=== PATIENT | female | born 1970 | race Two or more races ===

== ENCOUNTER 2024-02-12 16:00 | Inpatient (IN) | payer MEDICAID, OTHER ==
[~2024-02-12] VITALS: Ht 162.6 cm; Wt 41.9 kg
[2024-02-12 16:41] LABS: Basophils # (auto) 0 10 ^3/uL (0-0.2); Eosinophils # (auto) 0 10 ^3/uL (0-0.8); Lymphocytes # (auto) 0.7 10 ^3/uL (0.4-5.4); Monocytes # (auto) 0.4 10 ^3/uL (0-1.3)
[2024-02-12 16:42] LABS: Basophils % (auto) 0.2 % (0.0-2.0); Hematocrit 47.2 % (36.0-46.0); Hemoglobin 15.9 g/dL (12.2-16.2); Lymphocytes % (auto) 5.4 % (10.0-50.0); Mean Corpuscular Hemoglobin 30.1 pg (28.0-32.0); Mean Corpuscular Hgb Conc. 33.7 g/dL (32.0-36.0); Mean Corpuscular Volume 89.4 fL (80.0-100.0); Monocytes % (auto) 3.2 % (0.0-12.0); Neutrophils % (auto) 91.2 % (37.0-80.0); Platelet Count (auto) 551 10^3/uL (140-450); Red Blood Cells 5.27 10^6/uL (4.0-5.20); Red Cell Distribution Width 14.7 % (11.8-14.3); White Blood Cell 13.1 10^3/uL (4.4-10.8)
[2024-02-12 16:50] LABS: Chloride 102 mmol/L (98-107); Potassium 3.6 mmol/L (3.5-5.1); Sodium 139 mmol/L (136-145)
[2024-02-12 16:51] LABS: Anion Gap 14 (5-15); Carbon Dioxide 23 mmol/L (20-31)
[2024-02-12 16:53] LABS: Calcium 11.8 mg/dL (8.7-10.4)
[2024-02-12 16:56] LABS: BUN/Creatinine Ratio 29.7 (10.0-20.0); Blood Urea Nitrogen 19 mg/dL (9-23); Glucose 144 mg/dL (74-106)
--- NOTE | 2024-02-12 17:00 | ED.PDOC ---
History of Present Illness HPI Comments 53 y/o F is BIBA for c/o abdominal and back pain nausea, vomiting, and diarrhea, today. Per EMS report, patient endorses on unprovoked onset of symptoms at 0530, this morning, that has been, progressively, worsening since. Patient states on pain radiating towards her back and reports no additional relevant or pertinent Hx, such as spoiled food intake or sick contact exposure. She denies having any hematemesis, constipation, urinary symptoms, fever, chills, or other associated symptoms or modifiers at this time. Chief Complaint: Abdominal Pain Time Seen by MD: 16:15 Reviewed Notes: Nurses Notes, Medications, Allergies Allergies: Coded Allergies: Prochlorperazine (Verified Allergy, Unknown, 02/12/24) Promethazine (Verified Allergy, Unknown, 02/12/24) Information Source: Patient Mode of Arrival: EMS Severity: Moderate Timing: Hours Duration: Since onset Prehospital treatment: 12 Lead EKG, Bsa Officer Past Medical History Past Medical History (Other): osteoporosis, neuropathy w/gabapentin use Surgical History: Denies all surgeries ACCOUNT INSTALLER History: Denies all ACCOUNT INSTALLER Hx Family History Family History: Unknown Social History Smoker: Non-Smoker Alcohol: Denies ETOH Use Drugs: Denies Drug Use Lives In: Home Gastrointestinal: reports: abdominal pain, diarrhea, nausea, vomiting Musculoskeletal: reports: back pain All Other Systems: Reviewed and Negative (negative unless otherwise stated above or in HPI) Physical Exam General Appearance: Moderate Distress, Thin HEENT: Normal ENT Inspection, Pharynx Normal, TMs Normal Neck: Full Range of Motion, Non-Tender, Normal, Normal Inspection Respiratory: Chest Non-Tender, Lungs Clear, No Accessory Muscle Use, No Respiratory Distress, Normal Breath Sounds Cardiovascular: No Edema, No JVD, No Murmur, No Gallop, Normal Peripheral Pul ses, Regular Rate/Rhythm Breast Exam: Deferred Gastrointestinal: No Organomegaly, Non Tender, No Pulsatile Mass, Normal Bowel Sounds, Soft Genitalia: Deferred Pelvic: Deferred Rectal: Deferred Extremities: No calf tenderness, Normal capillary refill, Normal inspection, Normal range of motion, Non-tender, No pedal edema Musculoskeletal : Apperance: Normal Neurologic: Alert, academic support center director II-XII nml as Tested, No Motor Deficits, Normal Affect, Normal Mood, No Sensory Deficits Cerebellar Function: NOT DONE Reflexes: NOT DONE Skin: Dry, Normal Color, Warm Peripheral Pulses: 3+ Radial (R), 3+ Radial (L) Lymphatic: No Adenopathy Was a procedure done? Was a procedure done?: No Differential Dx Considerations may include: gastritis, gastroenteritis, acute abdomen, chronic pain syndrome, neuropathy, spoiled food X-Ray, Labs, Meds, VS Vital Signs Date Time Temp Pulse Resp B/P (MAP) Pulse Ox O2 Delivery O2 Flow Rate FiO2 02/12/24 16:16 97.9 106 16 155/89 (111) 98 Lab Test 02/12/24 16:22 Range/Units White Blood Count 13.1 H 4.4-10.8 10^3/uL Red Blood Count 5.27 H 4.0-5.20 10^6/uL Hemoglobin 15.9 12.2-16.2 g/dL Hematocrit 47.2 H 36.0-46.0 % Mean Corpuscular Volume 89.4 80.0-100.0 fL Mean Corpuscular Hemoglobin 30.1 28.0-32.0 pg Mean Corpuscular Hemoglobin Concent 33.7 32.0-36.0 g/dL Red Cell Distribution Width 14.7 H 11.8-14.3 % Platelet Count 551 H 140-450 10^3/uL Mean Platelet Volume 8.3 6.9-10.8 fL Neutrophils (%) (Auto) 91.2 H 37.0-80.0 % Lymphocytes (%) (Auto) 5.4 L 10.0-50.0 % Monocytes (%) (Auto) 3.2 0.0-12.0 % Eosinophils (%) (Auto) 0.0 0.0-7.0 % Basophils (%) (Auto) 0.2 0.0-2.0 % Neutrophils # (Auto) 12.0 H 1.6-8.6 10 ^3/uL Lymphocytes # (Auto) 0.7 0.4-5.4 10 ^3/uL Monocytes # (Auto) 0.4 0-1.3 10 ^3/uL Eosinophils # (Auto) 0 0-0.8 10 ^3/uL Basophils # (Auto) 0 0-0.2 10 ^3/uL Nucleated Red Blood Cells 0.0 % Sodium Level 139 136-145 mmol/L Potassium Level 3.6 3.5-5.1 mmol/L Chloride Level 102 98-107 mmol/L Carbon Dioxide Level 23 20-31 mmol/L Anion Gap 14 5-15 Blood Urea Nitrogen 19 9-23 mg/dL Creatinine 0.64 0.550-1.02 mg/dL Glomerular Filtration Rate Calc 105 >90 mL/min BUN/Creatinine Ratio 29.7 H 10.0-20.0 Serum Glucose 144 H 74-106 mg/dL Calcium Level 11.8 H 8.7-10.4 mg/dL Patient alert. Complaining of abdominal pain. Nausea vomiting. Vitals stable. WBC elevated. Establish intravenous access. Was given fluids. Possible gastroenteritis. Blood sugar elevated. Was given morphine. Was given Zofran. Possible colitis. Reviewed her previous history. Explained to the patient. Continue cardiac monitoring. Time of 1ST Reevaluation: 16:45 Reevaluation 1ST: Unchanged Patient Education/Counseling: Diagnosis, Treatment Family Education/Counseling: No Family Present Departure 1 Departure Time of Disposition: 17:04 Impression: Primary Impression: Acute abdominal pain Additional Impression: Non-specific colitis Disposition: ADMITTED INPATIENT Admit to: Med Surg Condition: Guarded Critical Care Note Critical Care Time?: No Stability Stability form required: No Heart Score Heart Score: Heart Score Response (Comments) Value History N/A 0 EKG N/A 0 Age N/A 0 Risk Factors N/A 0 Troponin N/A 0 Total 0 I personally scribed for BOBBY MILIAN MD ([email or web address]) on 02/12/24 at 17:00. Electronically submitted by Celestino Posada ([email or web address]). BOBBY MILIAN MD Feb 12, 2024 17:00
[2024-02-12] MEDS: ONDANSETRON HCL 4 MG/2 ML VIAL IV ONE ×2 (17:56→23:00)
[2024-02-12] MEDS: MORPHINE SULFATE 4 MG/ML SYR/VIAL IV ONE (17:56)
[2024-02-12] MEDS: SODIUM CHLORIDE 0.9% 1,000 ML IV ONE (17:57)
[2024-02-12] MEDS: cefTRIAXone 1GM/50ML D5W 50 ML IV ONE (17:57)
--- NOTE | 2024-02-12 18:42 | DVH ---
Exam: CT CT AB PEL WO CON-NO ORAL OR IV History: colitis Comparison Study: None available at time of dictation. Technique: Multidetector spiral CT of the abdomen was performed from lung bases to pubic symphysis. Imaging was performed without IV contrast. Axial, coronal and sagittal multiplanar reformats were ob tained from the axial data set by the technologist. Radiation Dose : 1. Abdomen/Pelvis: CTDIvol 5 mGy, DLP 226 mGy*cm. Findings: Evaluation of solid organs is limited due to lack of intravenous contrast use. Lung Bases: No acute or significant lung base finding. Normal heart size. No pleural or pericardial effusion. Liver: The liver is normal in size. No focal lesions. Gallbladder and Biliary Tree: Gallbladder is surgically absent. Spleen: Unremarkable Pancreas: The pancreas is grossly normal in appearance. Adrenal Glands: Unremarkable Kidneys: Kidneys are grossly normal without calculi or hydronephrosis. Bladder: Grossly unremarkable for degree of distention. Bowel: The stomach is grossly normal in appearance. Small bowel and colon are normal in caliber and d istribution. The appendix is not visualized; however, no secondary findings of acute appendicitis id entified. Ascites: Absent Lymphadenopathy: No mesenteric, retroperitoneal or periportal lymphadenopathy. Abdominal Wall and Mesentery: Unremarkable. Vasculature: The visualized abdominal aorta is normal in size and caliber. Evaluation of abdominal a nd pelvic vessels is limited due to lack of intravenous contrast. Pelvic Organs: The uterus is surgically absent. Musculoskeletal: No aggressive focal bony lesions, acute fractures or dislocation. IMPRESSION: No acute abdominal or pelvic findings on this noncontrast evaluation. No evidence to suggest acute co litis. Fatty infiltration involving portions of the colonic wall which can be seen with inflammatory bowel disease or prior episodes of infectious/inflammatory colitis. Ancillary findings as described ortiz patrick. Status post cholecystectomy with expected dilation of the common bile duct. END IMPRESSION:
[2024-02-12] MEDS: metroNIDAZOLE 500MG/100ML 100 ML IV ONE (18:43)
[2024-02-12] MEDS ORDERED: PROCHLORPERAZINE EDISYLATE 5 MG/ML 2ML VIAL IV PRN (22:30)
[2024-02-12] MEDS: PANTOPRAZOLE 40 MG/10 ML VIAL INJ IV ONE (22:59)
[2024-02-12] MEDS: MORPHINE SULFATE INJ 2 MG/ml SYRG IV ONE (22:59)
[2024-02-12 23:00] VITALS: PULSE 101; RESP 19; O2SAT 100
[2024-02-12] MEDS: SODIUM CHLORIDE 0.9% 1,000 ML IV SCH (23:00)
[2024-02-12 23:20] LABS: Eosinophils # (auto) 0 10 ^3/uL (0-0.8)
[2024-02-12 23:22] LABS: Basophils # (auto) 0 10 ^3/uL (0-0.2); Basophils % (auto) 0.3 % (0.0-2.0); Hematocrit 41.7 % (36.0-46.0); Hemoglobin 14.1 g/dL (12.2-16.2); Lymphocytes # (auto) 0.7 10 ^3/uL (0.4-5.4); Lymphocytes % (auto) 5.2 % (10.0-50.0); Mean Corpuscular Hemoglobin 30.4 pg (28.0-32.0); Mean Corpuscular Hgb Conc. 33.8 g/dL (32.0-36.0); Mean Corpuscular Volume 89.9 fL (80.0-100.0); Monocytes # (auto) 0.5 10 ^3/uL (0-1.3); Monocytes % (auto) 3.8 % (0.0-12.0); Neutrophils # (auto) 12.8 10 ^3/uL (1.6-8.6); Neutrophils % (auto) 90.7 % (37.0-80.0); Platelet Count (auto) 470 10^3/uL (140-450); Red Blood Cells 4.64 10^6/uL (4.0-5.20); Red Cell Distribution Width 14.6 % (11.8-14.3); White Blood Cell 14.1 10^3/uL (4.4-10.8)
[2024-02-12 23:37] LABS: Albumin 4.5 g/dL (3.2-4.8); Anion Gap 13 (5-15); Aspartate Aminotransferase 21 U/L (13-40); Blood Urea Nitrogen 15 mg/dL (9-23); Calcium 10.1 mg/dL (8.7-10.4); Carbon Dioxide 23 mmol/L (20-31); Chloride 104 mmol/L (98-107); Lipase 32 U/L (12-53); Sodium 140 mmol/L (136-145)
[2024-02-12 23:38] LABS: Bilirubin, Total 0.4 mg/dL (0.2-1.0); Total Protein 7.1 g/dL (5.7-8.2)
[2024-02-12 23:45] LABS: Alanine Aminotransferase 43 U/L (7-40); Alkaline Phosphatase 138 U/L (46-116); Glucose 122 mg/dL (74-106); Potassium 3.4 mmol/L (3.5-5.1)
--- NOTE | 2024-02-12 23:58 | DVHHPRES ---
History of Present Illness Resident Creating Document: JHAJLUANN CastañedaTALYA RESIDENT History of Present Illness Patient is a 53-year-old female with a past medical history of Graves disease and osteoporosis came to the ED with a chief complaint of intractable vomiting since 5:30 a.m. in the morning. Patient reports that since the last 2-3 months she has been having intermittent intractable nausea and vomiting which could last up to 2 weeks and then the other time she is in remission asymptomatic for about 2-3 weeks. Patient lives in [place] and is visiting her friend. Patient reports she reached last night and early in the morning she started vomiting which has been ongoing since then. During the previous episodes of vomiting patient denied blood but this episode she has had blood 2 times in vomitus. Patient also reports associated right upper quadrant pain which is radiates down along the flank to the back. Since the last 2-3 months since her illness has been going on, she reports of constipation and has bowel movement every 3-4 days. Since yesterday the patient also reported 3 episodes of watery stools which is the 1st time she has been having diarrhea. Patient reports about 18 lb weight loss over the last 3 months with the associated night sweats. CT abdomen pelvis without contrast was done which showed no acute abdominal or pelvic findings, no evidence to suggest acute colitis, fatty infiltration involving portions of the colonic wall which can be seen with inflammatory bowel disease or prior episodes of infectious/inflammatory colitis. Past medical history: Graves disease ( patient was previously on methimazole and propranolol but currently on no medication), osteoporosis Past surgical history: Cholecystectomy, appendectomy, hysterectomy Social history: Patient lives in [facility] and visiting a friend and denies smoking, alcohol, drug use Home medications: None Review of Systems Review of Systems Patient has intractable nausea and is vomiting and retching while examination Vomitus is yellowish fluid with some associated blood Has severe right upper quadrant abdominal pain Reports back pain Is in severe distress due to abdominal pain and vomiting. Allergies: Coded Allergies: Prochlorperazine (Verified Allergy, Unknown, 02/12/24) Promethazine (Verified Allergy, Unknown, 02/12/24) Medications Current Medications Medications Dose Ordered Sig/Loraine Route Start Time Stop Time Status Last Admin Dose Admin Pantoprazole Sodium 40 mg DAILY IV 02/13/24 10:00 Sodium Chloride 1,000 ml @ 75 mls/hr [id number] IV 02/12/24 22:30 02/12/24 23:00 75 MLS/HR Ondansetron HCl 4 mg Q4HPRN PRN IV 02/12/24 22:30 Prochlorperazine Edisylate 5 mg Q4HPRN PRN IV 02/12/24 22:30 UNV Morphine Sulfate 2 mg Q4HPRN PRN IV 02/12/24 22:30 Exam Vital Signs Vital Signs Date Time Temp Pulse Resp B/P (MAP) Pulse Ox O2 Delivery O2 Flow Rate FiO2 02/12/24 23:00 101 19 100 Room Air* 0 21 02/12/24 23:00 98.9 168/96 (120) 98.9 Exam Physical Examination Constitutional: Patient is alert and oriented to time, place and person and is in severe distress because of the intractable nausea, retching, vomiting going on for over 12 hours Gen - no pallor, no icterus, no cyanosis, no clubbing, no LAD, no edema . Skin - Patients skin is warm and dry. HEENT - normocephalic, atraumatic, dry mucous membranes. Neck - full ROM, no LAD, no JVD. Pulmonary - B/L vesicular breath sounds. no crackles, no wheezing cardiovascular - normal S1,S2 heard. no murmurs heard. peripheral pulses radial 2+, pedal 2+. GI - soft abdomen with tenderness to palpation in the right upper quadrant . no hepatospleenomegaly. Bowel sounds normoactive Neurological - Bilateral upper extremity strength 5/5, bilateral lower extremity strength 5/5, no facial droop, normal speech, no tremor, no sensory deficiets. Labs/Xrays Labs Test 02/12/24 23:30 02/12/24 22:56 Range/Units White Blood Count 14.1 H 4.4-10.8 10^3/uL Red Blood Count 4.64 4.0-5.20 10^6/uL Hemoglobin 14.1 12.2-16.2 g/dL Hematocrit 41.7 # 36.0-46.0 % Mean Corpuscular Volume 89.9 80.0-100.0 fL Mean Corpuscular Hemoglobin 30.4 28.0-32.0 pg Mean Corpuscular Hemoglobin Concent 33.8 32.0-36.0 g/dL Red Cell Distribution Width 14.6 H 11.8-14.3 % Platelet Count 470 H 140-450 10^3/uL Mean Platelet Volume 8.2 6.9-10.8 fL Neutrophils (%) (Auto) 90.7 H 37.0-80.0 % Lymphocytes (%) (Auto) 5.2 L 10.0-50.0 % Monocytes (%) (Auto) 3.8 0.0-12.0 % Eosinophils (%) (Auto) 0.0 0.0-7.0 % Basophils (%) (Auto) 0.3 0.0-2.0 % Neutrophils # (Auto) 12.8 H 1.6-8.6 10 ^3/uL Lymphocytes # (Auto) 0.7 0.4-5.4 10 ^3/uL Monocytes # (Auto) 0.5 0-1.3 10 ^3/uL Eosinophils # (Auto) 0 0-0.8 10 ^3/uL Basophils # (Auto) 0 0-0.2 10 ^3/uL Nucleated Red Blood Cells 0.0 % Sodium Level 140 136-145 mmol/L Potassium Level 3.4 L 3.5-5.1 mmol/L Chloride Level 104 98-107 mmol/L Carbon Dioxide Level 23 20-31 mmol/L Anion Gap 13 5-15 Blood Urea Nitrogen 15 9-23 mg/dL Creatinine 0.50 L 0.550-1.02 mg/dL Glomerular Filtration Rate Calc 111 >90 mL/min BUN/Creatinine Ratio 30.0 H 10.0-20.0 Serum Glucose 122 H 74-106 mg/dL Calcium Level 10.1 8.7-10.4 mg/dL Total Bilirubin 0.4 0.2-1.0 mg/dL Aspartate Amino Transferase (AST) 21 13-40 U/L Alanine Aminotransferase (ALT) 43 H 7-40 U/L Alkaline Phosphatase 138 H 46-116 U/L Total Protein 7.1 5.7-8.2 g/dL Albumin 4.5 3.2-4.8 g/dL Lipase 32 12-53 U/L Thyroid Stimulating Hormone (TSH) < 0.01 L 0.55-4.78 uIU/mL Assessment/Plan Assessment/Plan # Acute intractable nausea and vomiting # Acute abdominal pain likely due to gastroenteritis # ? Acute gastroenteritis # SIRS positive ? Sepsis # R/o SBO - WBCs 13.1--> 14.1 with left shift - CT abdomen pelvis without contrast was done which showed no acute abdominal or pelvic findings, no evidence to suggest acute colitis, fatty infiltration involving portions of the colonic wall which can be seen with inflammatory bowel disease or prior episodes of infectious/inflammatory colitis. - 18 lb weight loss last 3 months - on ceftriaxone 1 g daily and metronidazole 500 mg IV q.8 hours, NS @ 75 mL/hour - Zofran p.r.n. for nausea, vomiting - pantoprazole 40 mg IV q.d. - patient NPO - stool occult blood and stool culture pending - blood culture pending - GI consulted # Hyperthyroidism # h/o Graves disease - TSH undetectable <0.01 - free T3 and T4 pending - patient reports that she was previously on propranolol and methimazole but has been off medication - reports history of 18 lb weight loss over the last 3 months # chronic back pain # right CVA tenderness # suspected UTI - urinalysis pending - patient on morphine 2 mg IV q.4 p.r.n. # hypokalemia - replaced with 20 mEq IV KCl Goals of care discussed with the patient for over 29 minutes. Full code Plan discussed with Dr. Saenz Plan discussed with: Patient, Other My Orders Orders - EMILE HODGE RESIDENT Procedure Category Date Status Time Admit ADMIT 02/12/24 Transmitted 22:23 Receivable Manager For [facility] 02/12/24 In Process 24 Hours 22:23 Emergency Dysrhythmia [facility] 02/12/24 In Process Protocol 22:23 Notify Of Changes [facility] 02/12/24 In Process From Base 22:23 Stat Ekg For Chest MELI 02/12/24 In Process Pain 22:23 Urinalysis LAB 02/12/24 Logged 22:23 Drug Screen LAB 02/12/24 Logged 22:23 Covid19 Antigen [facility] 02/12/24 In Process Rapid Influenza A&B LAB 02/12/24 In Process 22:23 Stool Wbc LAB 02/12/24 Logged 22:23 Stool Occult Blood LAB 02/12/24 Logged 22:23 Inflammatory Bowel LAB 02/12/24 In Process Disease-Ibd 22:23 Pantoprazole PHA 02/13/24 In Process (Protonix) 10:00 Npo (Nothing By DIET 02/13/24 Transmitted Mouth) Diet Breakfast Sodium Chloride 0.9% PHA 02/12/24 In Process 22:30 Ondansetron Hcl PHA 02/12/24 In Process (Zofran) 22:30 Prochlorperazine Inj PHA 02/12/24 Pending (Compazine Inj) 22:30 Morphine Sulfate PHA 02/12/24 In Process Injection 22:30 Date of Service: Feb 12, 2024 Billing Provider: JAI SAENZ MD Common Visit Codes: [id number] INP/OBS CARE (HIGH) EMILE HODGE RESIDENT Feb 12, 2024 23:58 JAI SAENZ MD Feb 13, 2024 08:33
[2024-02-13] VITALS (9 sets, daily range): BP systolic 127–157; BP diastolic 64–86; PULSE 84–121; RESP 16–21; TEMP 97.5–98.7; O2SAT 96–98
[2024-02-13 00:11] LABS: Rapid Influenza A Negative (Negative); Rapid Influenza B Negative (Negative)
[2024-02-13 00:12] LABS: COVID19 ANTIGEN SOFIA FIA NEGATIVE (NEGATIVE)
[2024-02-13] MEDS: ONDANSETRON HCL 4 MG/2 ML VIAL IV PRN (01:54)
[2024-02-13] MEDS: MORPHINE SULFATE INJ 2 MG/ml SYRG IV PRN (03:49)
[2024-02-13 04:59] LABS: Urine Bacteria None Seen /hpf (None Seen)
[2024-02-13] MEDS: metroNIDAZOLE 500MG/100ML 100 ML IV SCH (05:30)
[2024-02-13 05:33] LABS: Amphetamine Screen, Urine Neg (NEGATIVE); Barbiturate Scree,Urine Neg (NEGATIVE); Benzodiazephine Screen, Urine Neg (NEGATIVE); Cannabinoid Screen, Urine Pos (NEGATIVE); Cocaine Screen, Urine Neg (NEGATIVE); Opiate Scree,Urine Pos (NEGATIVE); Phencyclidine Screen, Urine Neg (NEGATIVE)
[2024-02-13 06:03] LABS: Urine Blood Negative /uL (Negative); Urine Clarity Clear (Clear); Urine Color Light-Yellow (Yellow); Urine Mucus FEW (None Seen); Urine Protein, UAD TRACE (Negative); Urine Specific Gravity 1.019 (1.001-1.035); Urine Squamous Epithelial Cell FEW /hpf (<5); Urine Urobilinogen Normal (Negative); Urine WBC 1 /hpf (0 - 5); Urine pH 6.5 (5.0-9.0)
--- NOTE | 2024-02-13 06:47 | DVH ---
CHEST RADIOGRAPH Indication: r/o pneumonia Technique: Single frontal view of the chest was obtained Comparison: None IMPRESSION: The heart appears normal in size. The lungs appear clear without focal airspace opacity, effusion, o r pneumothorax.
[2024-02-13 07:23] LABS: Basophils # (auto) 0 10 ^3/uL (0-0.2); Basophils % (auto) 0.3 % (0.0-2.0); Eosinophils # (auto) 0 10 ^3/uL (0-0.8); Hematocrit 39.9 % (36.0-46.0); Hemoglobin 13.2 g/dL (12.2-16.2); Lymphocytes # (auto) 1.2 10 ^3/uL (0.4-5.4); Lymphocytes % (auto) 7.8 % (10.0-50.0); Mean Corpuscular Hemoglobin 29.9 pg (28.0-32.0); Mean Corpuscular Hgb Conc. 33.2 g/dL (32.0-36.0); Mean Corpuscular Volume 89.9 fL (80.0-100.0); Monocytes # (auto) 0.8 10 ^3/uL (0-1.3); Monocytes % (auto) 5.2 % (0.0-12.0); Neutrophils # (auto) 13.3 10 ^3/uL (1.6-8.6); Neutrophils % (auto) 86.7 % (37.0-80.0); Platelet Count (auto) 428 10^3/uL (140-450); Red Blood Cells 4.43 10^6/uL (4.0-5.20); Red Cell Distribution Width 14.7 % (11.8-14.3); White Blood Cell 15.3 10^3/uL (4.4-10.8)
[2024-02-13 07:48] LABS: Free T3 5.28 pg/mL (2.3-4.2)
[2024-02-13 07:49] LABS: Free T4 (Free Thyroxine) 2.52 ng/dL (0.89-1.76)
[2024-02-13 08:03] LABS: Alanine Aminotransferase 39 U/L (7-40); Albumin 4.2 g/dL (3.2-4.8); Anion Gap 11 (5-15); Aspartate Aminotransferase 20 U/L (13-40); BUN/Creatinine Ratio 23.5 (10.0-20.0); Blood Urea Nitrogen 12 mg/dL (9-23); Calcium 10.1 mg/dL (8.7-10.4); Carbon Dioxide 23 mmol/L (20-31); Chloride 106 mmol/L (98-107); Glucose 101 mg/dL (74-106); Sodium 140 mmol/L (136-145)
[2024-02-13 08:04] LABS: Bilirubin, Total 0.5 mg/dL (0.2-1.0); Total Protein 6.5 g/dL (5.7-8.2)
[2024-02-13 08:07] LABS: Alkaline Phosphatase 129 U/L (46-116); Potassium 3.3 mmol/L (3.5-5.1)
[2024-02-13] MEDS: PANTOPRAZOLE 40 MG/10 ML VIAL INJ IV SCH (08:40)
[2024-02-13] MEDS: SOD CHL 0.9%/ KCL 40MEQ 1,000 ML IV SCH (12:26)
--- NOTE | 2024-02-13 15:20 | DVHPNRES ---
Progress Note Date Seen: Feb 13, 2024 Resident Creating Document: LINDA KIMBLE RESIDENT Medical Necessity Reason Pt with a Central, PICC or Fol: No Subjective Review of Systems Patient is 53 years old female with a past medical history of Graves disease(previously on methimazole and propranolol but stopped her medication as per her edi programmer recommendation) came with a complaint of intractable nausea and vomiting. As per patient she has been having cyclic nausea and vomiting for last 2-3 months which usually last for 2-3 weeks then it gets better and comes back. For latest episode she has been having nausea and vomiting below for last 2-3 weeks, yesterday she threw up to 20 times, mostly watery but she had some blood with the with vomiting of last two episode yesterday . Patient also complained of right upper abdominal pain that radiates to her back, severity 7/10, sharp in nature. Patient also endorsed 3 episodes of diarrhea, watery stool yesterday. On further discussion patient also reported that she lost almost 18 lb in last 2 months., complained of night sweating as well. Initial lab workup revealed WBC 13.1, platelet 551, potassium 3.4, lipase 32, lactic acid 1.0, elevated alkaline phosphatase 138, tele TSH<.001, FT4 2.52, FT3 5.28. UDS positive for cannabinoids and opiates. Patient was tested negative for COVID-19 and influenza type A and B and urinalysis was negative for UTI. CT abdomen and pelvis revealed- Fatty infiltration involving portions of the colonic wall which can be seen with inflammatory bowel disease or prior episodes of infectious/inflammatory colitis. CXR revealed-The heart appears normal in size. The lungs appear clear without focal airspace opacity, effusion, or pneumothorax. Past medical history: Graves disease ( patient was previously on methimazole and propranolol but currently on no medication), osteoporosis Past surgical history: Cholecystectomy, appendectomy, hysterectomy Social history: Patient lives in [facility] and visiting a friend and denies smoking, alcohol, drug use Home medications: None Allergy-prochlorperazine, promethazine Patient was seen today at the bedside Cardiovascular- deny acute chest pain or shortness of breath or cough or palpitation Respiratory- denies cough or short of breath or wheezing Gastrointestinal- denies any rectal bleeding, Musculoskeletal-denies acute joint swelling or tenderness or redness Neurological- denies acute dysarthria, dysphagia, change in vision Psychiatry- denies depression or SI or HI Skin- denies acute rash or purpura Patient was seen today for clinical evaluation. Labs and chart reviewed. Patient complained of abdominal pain. Patient has right upper abdominal tenderness. Patient with abnormal thyroid function tests, EGD started methimazole 5 mg p.o. daily and propranolol 10 mg p.o. t.i.d.. Ordered clear liquid diet. Care Aide spoke to next of kin Shameka, contact [phone] and answered her question. Objective vital signs Vital Sign Date Time Temp Pulse Resp B/P (MAP) Pulse Ox O2 Delivery O2 Flow Rate FiO2 02/13/24 14:15 124 18 145/66 02/13/24 09:00 97.9 98 97.9 02/13/24 07:40 Room Air* 0 21 Total Intake and Output 02/12/24 02/12/24 02/13/24 15:00 23:00 07:00 Intake Total 350 ml Balance 350 ml medications Current Medications Medications Dose Ordered Sig/Loraine Route Start Time Stop Time Status Last Admin Dose Admin Pantoprazole Sodium 40 mg DAILY IV 02/13/24 10:00 02/13/24 08:40 40 MG Ondansetron HCl 4 mg Q4HPRN PRN IV 02/12/24 22:30 02/13/24 12:25 4 MG Morphine Sulfate 2 mg Q4HPRN PRN IV 02/12/24 22:30 02/13/24 14:15 2 MG Ceftriaxone Sodium 50 ml @ 100 mls/hr Q24H IV 02/13/24 21:00 Metronidazole 100 ml @ 100 mls/hr Q8HR IV 02/13/24 06:00 02/13/24 14:15 100 MLS/HR Sucralfate 1 gm BID@0600,2200 PO 02/13/24 22:00 Potassium Chloride/Sodium Chloride 1,000 ml @ 100 mls/hr Q10H IV 02/13/24 09:15 02/13/24 12:26 100 MLS/HR Methimazole 5 mg DAILY PO 02/14/24 10:00 Propranolol HCl 10 mg TID PO 02/13/24 22:00 Examination General examination-tired looking, awake, alert HEENT- PEERLA, no acute nasal discharge Cardiovascular- S1-S2 audible, rate and rhythm regular, no murmur Respiratory- CTAB, no wheeze or rhonchi Gastrointestinal-n right upper abdominal tenderness++, bowel sound+. Nondistended Musculoskeletal-no acute joint swelling or tenderness or redness# Lower extremity- no leg edema Neurological- cranial nerves intact, no acute dysarthria or dysphagia Psychiatry- denies depression or SI or HI Skin- no acute rash or purpura laboratory and microbiology Laboratory Tests 02/13/24 07:09 02/13/24 06:54 Test 02/13/24 07:09 Range/Units Serum Glucose 101 74-106 mg/dL Problem List/Assessment/Plan Problem List/Assessment/Plan # suspected inflammatory bowel disease # intractable nausea and vomiting likely due to inflammatory bowel disease or inflammatory colitis # recurrence of Graves disease # hypokalemia replenished # leukocytosis likely due to inflammatory bowel disease/reactive leukocytosis # thrombocytosis maybe likely due to dehydration/ reactive # substance abuse-UDS positive for cannabinoids # weight loss might be related to hyperthyroidism or Graves disease -CT abdomen and pelvis revealed- Fatty infiltration involving portions of the colonic wall which can be seen with inflammatory bowel disease or prior episodes of infectious/inflammatory colitis Continue ceftriaxone 1 g IV daily Niacin 500 mg IV q.8h Continue fluid as prescribed Continue methimazole 5 mg p.o. daily Continue propranolol 10 mg t.i.d. Continue Zofran p.r.n. as prescribed Goals of care/advance care planning; FULL CODE; discussed with the patient >15 minutes PUD prophylaxis: Pantoprazole DVT prophylaxis: Plan discussed with Dr. Fernando, nursing staff, patient Total time spent on patient evaluation, chart review, assessment and plan, discussion discussion >30 minutes Plan discussed with: Patient Plan discussed with: Patient, Other (Next of kin, RN) My Orders My Orders Orders - LINDA KIMBLE Procedure Category Date Status Time Clear Liq Diet DIET 02/13/24 Transmitted Dinner Methimazole Tab PHA 02/14/24 In Process (Tapazole) 10:00 Propranolol Hcl PHA 02/13/24 In Process Tablet (Inderal 22:00 Date of Service: Feb 13, 2024 Billing Provider: MATTIE FERNANDO MD Common Visit Codes: [id number] INP/OBS CARE(HIGH) LINDA KIMBLE Feb 13, 2024 15:20 MATTIE FERNANDO MD Feb 13, 2024 19:57
[2024-02-13] MEDS: methIMAzole 5 MG TAB PO ONE (15:24)
[2024-02-13] MEDS: PROPRANOLOL HCL 20 MG TAB PO ONE (15:24)
[2024-02-13] MEDS: POTASSIUM CHLORIDE 40 MEQ, LIDOCAINE 1% (LOCAL ANESTH.) 4 ML in SODIUM CHL 0.9% 250 ML IV ONE (15:24)
[2024-02-13] MEDS: POTASSIUM CHLORIDE 20 MEQ, LIDOCAINE 1% (LOCAL ANESTH.) 2 ML in SODIUM CHL 0.9% 100 ML IV ONE (15:37)
[2024-02-13] MEDS: cefTRIAXone 1GM/50ML D5W 50 ML IV SCH (20:15)
--- NOTE | 2024-02-13 21:01 | DVHINCON2 ---
Date of service: Feb 13, [address] Lancaster Reason for Consultation N/V History of Present Illness Patient is a 53-year-old female with a past medical history of Graves disease and osteoporosis came to the ED with a chief complaint of intractable vomiting since 5:30 a.m. in the morning. Patient reports that since the last 2-3 months she has been having intermittent intractable nausea and vomiting which could last up to 2 weeks and then the other time she is in remission asymptomatic for about 2-3 weeks. Patient lives in [facility] and is visiting her friend. Patient reports she reached last night and early in the morning she started vomiting which has been ongoing since then. During the previous episodes of vomiting patient denied blood but this episode she has had blood 2 times in vomitus. Patient also reports associated right upper quadrant pain which is radiates down along the flank to the back. Since the last 2-3 months since her illness has been going on, she reports of constipation and has bowel movement every 3-4 days. Since yesterday the patient also reported 3 episodes of watery stools which is the 1st time she has been having diarrhea. Patient reports about 18 lb weight loss over the last 3 months with the associated night sweats. CT abdomen pelvis without contrast was done which showed no acute abdominal or pelvic findings, no evidence to suggest acute colitis, fatty infiltration invo lving portions of the colonic wall which can be seen with inflammatory bowel disease or prior episodes of infectious/inflammatory colitis. Past Medical History Graves disease ( patient was previously on methimazole and propranolol but currently on no medication), osteoporosis Past Surgical History Past surgical history: Cholecystectomy, appendectomy, hysterectomy Family History: FH: brain cancer G8 MOTHER, Onset:60 years & older Hepatitis C G8 FATHER, Onset:60 years & older Hypertension Thyroid disease G8 MOTHER Allergies: Coded Allergies: Prochlorperazine (Verified Allergy, Unknown, 02/12/24) Promethazine (Verified Allergy, Unknown, 02/12/24) Current Medications Current Medications Medications (Trade) Dose Ordered Sig/Loraine Route PRN Reason Start Time Stop Time Status Last Admin Pantoprazole Sodium (Protonix) 40 mg DAILY IV 02/13/24 10:00 02/13/24 08:40 Sodium Chloride 1,000 ml @ 75 mls/hr [id number] IV 02/12/24 22:30 02/13/24 09:04 DC 02/12/24 23:00 Ondansetron HCl (Zofran) 4 mg Q4HPRN PRN IV NAUSEA / VOMITING 02/12/24 22:30 02/13/24 20:10 Prochlorperazine Edisylate (Compazine Inj) 5 mg Q4HPRN PRN IV NAUSEA / VOMITING 02/12/24 22:30 02/13/24 03:43 DC Morphine Sulfate 2 mg Q4HPRN PRN IV SEVERE PAIN (7-10 PAIN SCALE) 02/12/24 22:30 02/13/24 17:53 Ceftriaxone Sodium 50 ml @ 100 mls/hr Q24H IV 02/13/24 21:00 02/13/24 20:15 Metronidazole 100 ml @ 100 mls/hr Q8HR IV 02/13/24 06:00 02/13/24 14:15 Sucralfate (Carafate Susp) 1 gm BID@0600,2200 PO 02/13/24 22:00 Potassium Chloride/Sodium Chloride 1,000 ml @ 100 mls/hr Q10H IV 02/13/24 09:15 02/13/24 12:26 Methimazole (Tapazole) 5 mg DAILY PO 02/14/24 10:00 Propranolol HCl (Inderal Tablet) 10 mg TID PO 02/13/24 22:00 Vital Signs Vital Signs Date Time Temp Pulse Resp B/P (MAP) Pulse Ox O2 Delivery O2 Flow Rate FiO2 02/13/24 18:23 88 18 136/74 02/13/24 17:00 98.0 98 98.0 02/13/24 07:40 Room Air* 0 21 Physical Exam Patient is afebrile Hemodynamically stable No localizing signs reported Full physical examination deferred Labs/Diagnostic Data Labs Test 02/13/24 07:10 02/13/24 07:09 02/13/24 06:54 02/13/24 04:48 Range/Units Magnesium Level 2.0 1.6-2.6 mg/dL Sodium Level 140 136-145 mmol/L Potassium Level 3.3 L 3.5-5.1 mmol/L Chloride Level 106 98-107 mmol/L Carbon Dioxide Level 23 20-31 mmol/L Anion Gap 11 5-15 Blood Urea Nitrogen 12 9-23 mg/dL Creatinine 0.51 L 0.550-1.02 mg/dL Glomerular Filtration Rate Calc 111 >90 mL/min BUN/Creatinine Ratio 23.5 H 10.0-20.0 Serum Glucose 101 74-106 mg/dL Calcium Level 10.1 8.7-10.4 mg/dL Total Bilirubin 0.5 0.2-1.0 mg/dL Aspartate Amino Transferase (AST) 20 13-40 U/L Alanine Aminotransferase (ALT) 39 7-40 U/L Alkaline Phosphatase 129 H 46-116 U/L Total Protein 6.5 5.7-8.2 g/dL Albumin 4.2 3.2-4.8 g/dL White Blood Count 15.3 H 4.4-10.8 10^3/uL Red Blood Count 4.43 4.0-5.20 10^6/uL Hemoglobin 13.2 12.2-16.2 g/dL Hematocrit 39.9 36.0-46.0 % Mean Corpuscular Volume 89.9 80.0-100.0 fL Mean Corpuscular Hemoglobin 29.9 28.0-32.0 pg Mean Corpuscular Hemoglobin Concent 33.2 32.0-36.0 g/dL Red Cell Distribution Width 14.7 H 11.8-14.3 % Platelet Count 428 140-450 10^3/uL Mean Platelet Volume 8.4 6.9-10.8 fL Neutrophils (%) (Auto) 86.7 H 37.0-80.0 % Lymphocytes (%) (Auto) 7.8 L 10.0-50.0 % Monocytes (%) (Auto) 5.2 0.0-12.0 % Eosinophils (%) (Auto) 0.0 0.0-7.0 % Basophils (%) (Auto) 0.3 0.0-2.0 % Neutrophils # (Auto) 13.3 H 1.6-8.6 10 ^3/uL Lymphocytes # (Auto) 1.2 0.4-5.4 10 ^3/uL Monocytes # (Auto) 0.8 0-1.3 10 ^3/uL Eosinophils # (Auto) 0 0-0.8 10 ^3/uL Basophils # (Auto) 0 0-0.2 10 ^3/uL Nucleated Red Blood Cells 0.0 % Hemoglobin A1c 5.6 <5.7 % A1C Lactic Acid Level 1.0 0.4-2.0 mmol/L Free Thyroxine (T4) Calculated 2.52 H 0.89-1.76 ng/dL Free Triiodothyronine (T3) pg/mL 5.28 H 2.3-4.2 pg/mL Plasma/Serum Blood Alcohol < 3.0 <10 mg/dL Urine Color Light-yellow Yellow Urine Clarity Clear Clear Urine pH 6.5 5.0-9.0 Urine Specific [place] 1.019 1.001-1.035 Urine Protein Trace H Negative Urine Ketones 2+ H Negative Urine Blood Negative Negative /uL Urine Nitrite Negative Negative Urine Bilirubin Negative Negative Urine Urobilinogen Normal Negative mg/dL Urine Leukocyte Esterase Negative Negative /uL Urine RBC <1 0 - 4 /hpf Urine WBC 1 0 - 5 /hpf Urine Squamous Epithelial Cells Few <5 /hpf Urine Bacteria None seen None Seen /hpf Urine Mucus Few None Seen Urine Glucose Normal Normal mg/dL Urine Opiates Screen Pos NEGATIVE Urine Fentanyl Screen Neg NEGATIVE Urine Barbiturates Screen Neg NEGATIVE Urine Phencyclidine Screen Neg NEGATIVE Urine Amphetamines Screen Neg NEGATIVE Urine Benzodiazepines Screen Neg NEGATIVE Urine Cocaine Screen Neg NEGATIVE Urine Cannabinoids Screen Pos NEGATIVE Test 02/12/24 23:30 02/12/24 22:56 Range/Units Influenza Type A Antigen Negative Negative Influenza Type B Antigen Negative Negative SARS-CoV-2 Antigen (Rapid) Negative NEGATIVE Lipase 32 12-53 U/L Thyroid Stimulating Hormone (TSH) < 0.01 L 0.55-4.78 uIU/mL CT SCAN ABD PELVIS IMPRESSION: No acute abdominal or pelvic findings on this noncontrast evaluation. No evidence to suggest acute colitis. Fatty infiltration involving portions of the colonic wall which can be seen with inflammatory bowel disease or prior episodes of infectious/inflammatory colitis. Ancillary findings as described above. Status post cholecystectomy with expected dilation of the common bile duct. Problems(with codes): (1) Acute gastroenteritis (2) Weight loss, abnormal (3) Nausea & vomiting (4) Cyclical vomiting syndrome (5) Acute abdominal pain (6) Leukocytosis Plan/Recommendation Assessment plan Assessment has cyclical vomiting syndrome related to cannabis or marijuana use This may be superimposed by some acute gastroenteritis with vomiting induced hypokalemia Doubt acute or chronic inflammatory bowel disease, patient has not had a bowel movement today I will discuss with the patient if she would like to proceed with an endoscopy in a.m. if she has persistent symptoms Keep NPO after midnight Continue IV antibiotics, IV fluid hydration, IV Zofran, IV ppi Plan discussed with: Other (None) SHAKIRA VARELA MD Feb 13, 2024 21:00
[2024-02-13] MEDS: SUCRALFATE 1 GM/10 ML ORAL SUSP PO SCH (21:37)
[2024-02-13] MEDS: PROPRANOLOL HCL 20 MG TAB PO SCH (21:38)
[2024-02-14] VITALS (10 sets, daily range): BP systolic 117–152; BP diastolic 57–85; PULSE 72–102; RESP 16–20; TEMP 97.8–98.6; O2SAT 94–100
[2024-02-14 06:53] LABS: Anion Gap 11 (5-15); Carbon Dioxide 23 mmol/L (20-31); Chloride 103 mmol/L (98-107); Potassium 3.6 mmol/L (3.5-5.1); Sodium 137 mmol/L (136-145)
[2024-02-14 06:54] LABS: Calcium 10.2 mg/dL (8.7-10.4)
[2024-02-14 06:59] LABS: BUN/Creatinine Ratio 26.1 (10.0-20.0); Blood Urea Nitrogen 12 mg/dL (9-23); Glucose 92 mg/dL (74-106); Magnesium 1.8 mg/dL (1.6-2.6)
[2024-02-14 07:10] LABS: Basophils # (auto) 0 10 ^3/uL (0-0.2); Eosinophils # (auto) 0 10 ^3/uL (0-0.8); Lymphocytes # (auto) 1.1 10 ^3/uL (0.4-5.4); Monocytes # (auto) 0.6 10 ^3/uL (0-1.3)
[2024-02-14 07:13] LABS: Basophils % (auto) 0.2 % (0.0-2.0); Hematocrit 41.9 % (36.0-46.0); Hemoglobin 14.2 g/dL (12.2-16.2); Lymphocytes % (auto) 11.2 % (10.0-50.0); Mean Corpuscular Hemoglobin 30.2 pg (28.0-32.0); Mean Corpuscular Hgb Conc. 33.8 g/dL (32.0-36.0); Mean Corpuscular Volume 89.6 fL (80.0-100.0); Monocytes % (auto) 5.8 % (0.0-12.0); Neutrophils # (auto) 8.2 10 ^3/uL (1.6-8.6); Neutrophils % (auto) 82.8 % (37.0-80.0); Platelet Count (auto) 490 10^3/uL (140-450); Red Blood Cells 4.68 10^6/uL (4.0-5.20); Red Cell Distribution Width 14.3 % (11.8-14.3); White Blood Cell 9.9 10^3/uL (4.4-10.8)
[2024-02-14] MEDS: methIMAzole 5 MG TAB PO SCH (08:47)
[2024-02-14] MEDS ORDERED: SODIUM CHLORIDE LOCK 10 ML ONE (10:02)
[2024-02-14] MEDS: LIDOCAINE VISCOUS 2% 15ML UD ONE (11:16)
[2024-02-14] MEDS: diphenhdrAMINE HCL 50 MG/1 ML VL ONE (11:17)
[2024-02-14] MEDS: MIDAZOLAM HCL 5 MG/ML-1ML VIAL ONE (11:17)
[2024-02-14] MEDS: fentaNYL CITRATE 100 MCG/2 ML VL ONE ×2 (11:17→11:28)
--- NOTE | 2024-02-14 11:40 | DVHOP2 ---
Operative Report DATE OF OPERATION: 02/14/24 PROCEDURE: Upper Endoscopy with biopsy. PREOPERATIVE INDICATION: The patient is a 53 -year-old female undergoing endoscopy for nausea vomiting POSTOPERATIVE DIAGNOSES: 1. 2 cm sliding-type hiatal hernia with severe grade C linear erosive esophagitis with esophageal ulcers and inflammatory changes extending into the distal 10 cm of the esophagus 2. Mild antral gastritis with pre-pyloric antral gastric erosions otherwise normal examination up to the 2nd and 3rd part of the duodenum PROCEDURE PERFORMED BY: Shakira Serrano GI NURSE: Ariana SCOPE: Olympus videoendoscope. ASA CLASS: 2. PREOPERATIVE MEDICATIONS: Versed 5 mg, Fentanyl 150 mcg, Benadryl 50 mg I administered moderate sedation throughout this _10_ minutes procedure. An independent trained observer pushed medications at my direction, and monitored the patient's level of consciousness and physiological status throughout. PROCEDURE IN DETAIL: After obtaining an informed consent, the patient was placed on left lateral decubitus position. The patient was then sedated with the above medications. A bite block was placed between her teeth. The endoscope was then passed through the oropharynx, into the esophagus, and through the stomach and pylorus up to the second and third part of the duodenum. The endoscope was then withdrawn. The 2nd and 3rd part of the duodenal and the duodenal bulb were normal. Duodenal biopsies were obtained. The pre-pyloric area and antrum showed mild gastritis with some superficial pre- pyloric antral gastric erosions and tiny ulcers. On retroflexion the fundus cardia and angularis were normal. There was no fresh or old blood in the stomach. Gastric biopsies were obtained. The endoscope was then withdrawn into the distal esophagus. Patient had a 2 cm sliding-type hiatal hernia with [id number] grade B to C linear erosive esophagitis with esophageal ulcers extending into the distal 10 cm of the esophagus Esophageal biopsies were obtained. The mid to proximal esophagus and oropharynx were otherwise unremarkable. The patient tolerated the procedure well without difficulty. COMPLICATIONS : None SPECIMENS: Duodenal biopsies Gastric biopsies Esophageal biopsies DISPOSITION: Transfer back to the floor Stable PLAN: 1. Await for biopsy result 2. Will place pt on Protonix 40 mg bid 3. Carafate 1 g p.o. 4 times a day 4. DC aspirin NSAIDs smoking alcohol 5. Resume full liquid diet advance to soft mechanical as tolerated SHAKIRA SERRANO MD Feb 14, 2024 11:39
[2024-02-14] MEDS ORDERED: HALOPERIDOL LACTATE 5 MG/ML INJ VIAL IM PRN (13:00)
[2024-02-14] MEDS: SUCRALFATE 1 GM/10 ML ORAL SUSP PO SCH (18:16)
--- NOTE | 2024-02-14 18:35 | DVHPNRES ---
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 As per patient she has been having cyclic nausea and vomiting for last 2-3 months which usually last for 2-3 weeks then it gets better and comes back. For latest episode she has been having nausea and vomiting below for last 2-3 weeks, yesterday she threw up to 20 times, mostly watery but she had some blood with the with vomiting of last two episode yesterday . Patient also complained of right upper abdominal pain that radiates to her back, severity 7/10, sharp in nature. Patient also endorsed 3 episodes of diarrhea, watery stool yesterday. On further discussion patient also reported that she lost almost 18 lb in last 2 months., complained of night sweating as well. Initial lab workup revealed WBC 13.1, platelet 551, potassium 3.4, lipase 32, lactic acid 1.0, elevated alkaline phosphatase 138, tele TSH<.001, FT4 2.52, FT3 5.28. UDS positive for cannabinoids and opiates. Patient was tested negative for COVID-19 and influenza type A and B and urinalysis was negative for UTI. CT abdomen and pelvis revealed- Fatty infiltration involving portions of the colonic wall which can be seen with inflammatory bowel disease or prior episodes of infectious/inflammatory colitis. CXR revealed-The heart appears normal in size. The lungs appear clear without focal airspace opacity, effusion, or pneumothorax. On 02/14/2024- Endoscopic revealed-1. 2 cm sliding-type hiatal hernia with severe grade C linear erosive esophagitis with esophageal ulcers and inflammatory changes extending into the distal 10 cm of the esophagus 2. Mild antral gastritis with pre-pyloric antral gastric erosions otherwise normal examination up to the 2nd and 3rd part of the duodenum.. Past medical history: Graves disease ( patient was previously on methimazole and propranolol but currently on no medication), osteoporosis Past surgical history: Cholecystectomy, appendectomy, hysterectomy Social history: Patient lives in [facility] and visiting a friend and denies smoking, alcohol, drug use Home medications: None Allergy-prochlorperazine, promethazine Patient was seen today at the bedside Cardiovascular- deny acute chest pain or shortness of breath or cough or palpitation Respiratory- denies cough or short of breath or wheezing Gastrointestinal- denies any rectal bleeding, Musculoskeletal-denies acute joint swelling or tenderness or redness Neurological- denies acute dysarthria, dysphagia, change in vision Psychiatry- denies depression or SI or HI Skin- denies acute rash or purpura Patient was seen today for clinical evaluation. Labs and chart reviewed. Patient reported her abdominal pain has improved somewhat. Patient had endoscopy today. Endoscopic revealed-1. 2 cm sliding-type hiatal hernia with severe grade C linear erosive esophagitis with esophageal ulcers and inflammatory changes extending into the distal 10 cm of the esophagus 2. Mild antral gastritis with pre-pyloric antral gastric erosions otherwise normal examination up to the 2nd and 3rd part of the duodenum. Gastroenterology recommended Carafate 1 g p.o. 4 times a day, Protonix 40 mg p.o. b.i.d.. Sodium biopsy report. Patient's vomiting also improved but still persisting, ordered haloperidol 2.5 mg IM q.8h. Objective vital signs Vital Sign Date Time Temp Pulse Resp B/P (MAP) Pulse Ox O2 Delivery O2 Flow Rate FiO2 02/14/24 17:00 98.2 90 18 150/85 (106) 98 98.2 02/14/24 11:33 Nasal Cannula 6.0 02/14/24 08:00 21 Total Intake and Output 02/13/24 02/13/24 02/14/24 15:00 23:00 07:00 Intake Total 950 ml 350 ml Output Total 2000 ml Balance -1050 ml 350 ml medications Current Medications Medications Dose Ordered Sig/Loraine Route Start Time Stop Time Status Last Admin Dose Admin Pantoprazole Sodium 40 mg DAILY IV 02/13/24 10:00 02/14/24 08:46 40 MG Ondansetron HCl 4 mg Q4HPRN PRN IV 02/12/24 22:30 02/14/24 06:13 4 MG Morphine Sulfate 2 mg Q4HPRN PRN IV 02/12/24 22:30 02/14/24 08:47 2 MG Ceftriaxone Sodium 50 ml @ 100 mls/hr Q24H IV 02/13/24 21:00 02/13/24 20:15 100 MLS/HR Metronidazole 100 ml @ 100 mls/hr Q8HR IV 02/13/24 06:00 02/14/24 15:20 100 MLS/HR Potassium Chloride/Sodium Chloride 1,000 ml @ 100 mls/hr Q10H IV 02/13/24 09:15 02/14/24 04:46 100 MLS/HR Methimazole 5 mg DAILY PO 02/14/24 10:00 02/14/24 08:47 5 MG Propranolol HCl 10 mg TID PO 02/13/24 22:00 02/14/24 15:20 10 MG Sucralfate 1 gm QID@0600,1130,1700,2200 PO 02/14/24 17:00 02/14/24 18:16 1 GM Haloperidol Lactate 2.5 mg Q8HP PRN IM 02/14/24 13:00 Examination General examination-tired looking, awake, alert HEENT- PEERLA, no acute nasal discharge Cardiovascular- S1-S2 audible, rate and rhythm regular, no murmur Respiratory- CTAB, no wheeze or rhonchi Gastrointestinal-n right upper abdominal tenderness+, bowel sound+. Nondistended Musculoskeletal-no acute joint swelling or tenderness or redness# Lower extremity- no leg edema Neurological- cranial nerves intact, no acute dysarthria or dysphagia Psychiatry- denies depression or SI or HI Skin- no acute rash or purpura laboratory and microbiology Laboratory Tests 02/14/24 06:15 Test 02/14/24 06:15 Range/Units Serum Glucose 92 74-106 mg/dL Problem List/Assessment/Plan Problem List/Assessment/Plan # suspected inflammatory bowel disease # erosive gastritis with a superficial ulcer and 7 for changes # mild antral gastritis and pre-pyloric antral gastric erosions # intractable nausea and vomiting likely due to inflammatory bowel disease or inflammatory colitis # recurrence of Graves disease # hypokalemia replenished # leukocytosis likely due to inflammatory bowel disease/reactive leukocytosis # thrombocytosis maybe likely due to dehydration/ reactive # substance abuse-UDS positive for cannabinoids # weight loss might be related to hyperthyroidism or Graves disease -CT abdomen and pelvis revealed- Fatty infiltration involving portions of the colonic wall which can be seen with inflammatory bowel disease or prior episodes of infectious/inflammatory colitis On 02/14/2024- Endoscopic revealed-1. 2 cm sliding-type hiatal hernia with severe grade C linear erosive esophagitis with esophageal ulcers and inflammatory changes extending into the distal 10 cm of the esophagus 2. Mild antral gastritis with pre-pyloric antral gastric erosions otherwise normal examination up to the 2nd and 3rd part of the duodenum.. Continue ceftriaxone 1 g IV daily Niacin 500 mg IV q.8h Continue fluid as prescribed Continue methimazole 5 mg p.o. daily Continue propranolol 10 mg t.i.d. Continue Zofran p.r.n. as prescribed Labetalol 2.5 mg IM q.8h Goals of care/advance care planning; FULL CODE; discussed with the patient >15 minutes PUD prophylaxis: Pantoprazole DVT prophylaxis: Patient ambulating Plan discussed with Dr. Santillan, nursing staff, patient Total time spent on patient evaluation, chart review, assessment and plan, discussion discussion >30 minutes Plan discussed with: Patient Plan discussed with: Patient, Other (RN) My Orders My Orders Orders - LINDA KIMBLE Procedure Category Date Status Time Haloperidol Lactate PHA 02/14/24 In Process Injection (Haldol) 13:00 Date of Service: Feb 14, 2024 Billing Provider: ELDON SANTILLAN MD Common Visit Codes: [id number] INP/OBS CARE(HIGH) LINDA KIMBLE Feb 14, 2024 18:35 ELDON SANTILLAN MD Feb 15, 2024 08:21
[2024-02-14] MEDS: HALOPERIDOL LACTATE 5 MG/ML INJ VIAL IM ONE (19:54)
[2024-02-15] VITALS (7 sets, daily range): BP systolic 127–157; BP diastolic 67–84; PULSE 70–77; RESP 17–20; TEMP 36.7; O2SAT 95–97
[2024-02-15] MEDS ORDERED: GABA-1250 PO (06:18)
[2024-02-15 06:28] LABS: Basophils # (auto) 0 10 ^3/uL (0-0.2); Basophils % (auto) 0.3 % (0.0-2.0); Eosinophils # (auto) 0 10 ^3/uL (0-0.8); Hematocrit 38.8 % (36.0-46.0); Hemoglobin 13.2 g/dL (12.2-16.2); Lymphocytes # (auto) 1.1 10 ^3/uL (0.4-5.4); Lymphocytes % (auto) 11.5 % (10.0-50.0); Mean Corpuscular Hemoglobin 30.4 pg (28.0-32.0); Mean Corpuscular Volume 89.4 fL (80.0-100.0); Monocytes # (auto) 0.8 10 ^3/uL (0-1.3); Monocytes % (auto) 8.8 % (0.0-12.0); Neutrophils # (auto) 7.5 10 ^3/uL (1.6-8.6); Neutrophils % (auto) 79.4 % (37.0-80.0); Nucleated Red Blood Cells % 0.1 %; Platelet Count (auto) 418 10^3/uL (140-450); Red Blood Cells 4.33 10^6/uL (4.0-5.20); Red Cell Distribution Width 13.8 % (11.8-14.3); White Blood Cell 9.5 10^3/uL (4.4-10.8)
[2024-02-15 06:55] LABS: Anion Gap 9 (5-15); Carbon Dioxide 26 mmol/L (20-31); Chloride 100 mmol/L (98-107); Potassium 3.6 mmol/L (3.5-5.1)
[2024-02-15 06:56] LABS: Calcium 9.6 mg/dL (8.7-10.4)
[2024-02-15 06:58] LABS: Sodium 135 mmol/L (136-145)
[2024-02-15 07:01] LABS: Blood Urea Nitrogen 12 mg/dL (9-23); Glucose 90 mg/dL (74-106)
[2024-02-15 07:02] LABS: Magnesium 1.7 mg/dL (1.6-2.6)
[2024-02-15] MEDS ORDERED: HALOPERIDOL LACTATE 5 MG/ML INJ VIAL IM PRN (09:45)
[2024-02-15 11:06] LABS: Saccharomyces cerevisiae IgA <20.0 Units (0.0-24.9)
[2024-02-15] MEDS ORDERED: METH5TAB98 PO (13:19)
[2024-02-15] MEDS ORDERED: PROP60CA34 PO (15:52)
[2024-02-15] MEDS ORDERED: SUCR1TAB31 OR (15:52)
[2024-02-15] MEDS ORDERED: PANT40T PO (15:52)
--- NOTE | 2024-02-15 17:21 | DVHPN2 ---
Progress Note Date Seen: Feb 15, 2024 Resident Creating Document: JEFFERY BLOOM Medical Necessity Reason Pt with a Central, PICC or Fol: No Medical Necessity Reason abdominal pain better Subjective Review of Systems Patient is a 53-year-old female with a past medical history of Graves disease and osteoporosis came to the ED with a chief complaint of intractable vomiting since 5:30 a.m. in the morning. Patient reports that since the last 2-3 months she has been having intermittent intractable nausea and vomiting which could last up to 2 weeks and then the other time she is in remission asymptomatic for about 2-3 weeks. Patient lives in [facility] and is visiting her friend. Patient reports she reached last night and early in the morning she started vomiting which has been ongoing since then. During the previous episodes of vomiting patient denied blood but this episode she has had blood 2 times in vomitus. Patient also reports associated right upper quadrant pain which is radiates down along the flank to the back. Since the last 2-3 months since her illness has been going on, she reports of constipation and has bowel movement every 3-4 days. Since yesterday the patient also reported 3 episodes of watery stools which is the 1st time she has been having diarrhea. Patient reports about 18 lb weight loss over the last 3 months with the associated night sweats. CT abdomen pelvis without contrast was done which showed no acute abdominal or pelvic findings, no evidence to suggest acute colitis, fatty infiltration involving portions of the colonic wall which can be seen with inflammatory bowel disease or prior episodes of infectious/inflammatory colitis. PN02/14/2023 Patient is seen and examined today. She was lying in bed feeling much better compared to yesterday and no new complaints. She is status post EGD yesterday in the findings were 1. 2 cm sliding-type hiatal hernia with severe grade C linear erosive esophagitis with esophageal ulcers and inflammatory changes extending into the distal 10 cm of the esophagus and mild antral gastritis with pre-pyloric antral gastric erosions otherwise normal examination up to the 2nd and 3rd part of the duodenum. Objective vital signs Vital Sign Date Time Temp Pulse Resp B/P (MAP) Pulse Ox O2 Delivery O2 Flow Rate FiO2 02/15/24 15:00 71 18 127/67 (87) 97 02/15/24 14:50 36.7 02/15/24 08:00 Room Air* 0 21 Total Intake and Output 02/14/24 02/14/24 02/15/24 15:00 23:00 07:00 Intake Total 25 ml 1295 ml 100 ml Output Total 650 ml Balance 25 ml 1295 ml -550 ml Examination General examination- Not in acute distress, small looking, cachetic HEENT: PEERLA, no acute nasal discharge Chest: S1-S2 audible, rate and rhythm regular, no murmur Lung: CTAB, no wheeze or rhonchi Abdomen: Non-distended, BS+, mild tenderness, no organomegaly Musculoskeletal: no acute joint swelling or tenderness Lower extremity: no leg edema Neurological: cranial nerves intact, no acute dysarthria or dysphagia Psychiatry-- Normal mood and affect Skin- no acute rash or purpura laboratory and microbiology Laboratory Tests 02/15/24 05:50 Test 02/15/24 05:50 Range/Units Serum Glucose 90 74-106 mg/dL Problem List/Assessment/Plan Problem List/Assessment/Plan (1) Acute gastroenteritis s/p EGD (2) Weight loss, abnormal (3) Nausea & vomiting (4) Cyclical vomiting syndrome (5) Acute abdominal pain (6) Leukocytosis (7) Severe Malnutrition: BMI 15.9 (8) polysubstance abuse (9) hypokalemia (10) IBD ruled out Plan She cyclical vomiting syndrome related to cannabis or marijuana use This may be superimposed by some acute gastroenteritis with vomiting induced hypokalemia Recommend discontinue IV antibiotics IV fluid hydration, IV Zofran, IV ppi -Stable for discharge. Advised to followup with GI post discharge Goal of care discussed for more than 35 minute Case and plan discussed with Dr. Serrano Thank you for allowing us to participate in the care of this patient. Please call if you have any questions or concerns. Plan discussed with: Patient JEFFERY BLOOM RESIDENT Feb 15, 2024 17:21
--- NOTE | 2024-02-15 17:33 | DVHDSRES ---
Discharge Summary Date of Admission Resident Creating Document: JEFFERY BLOOM RESIDENT Feb 12, 2024 at 22:23 Date of Discharge: Feb 15, 2024 Admitting Diagnosis Acute gastroenteritis/acute exacerbation of Graves disease Labs/Diagnostic Data: Laboratory Results Test 02/15/24 05:50 02/13/24 07:09 02/13/24 06:54 02/13/24 04:48 White Blood Count 9.5 10^3/uL (4.4-10.8) Red Blood Count 4.33 10^6/uL (4.0-5.20) Hemoglobin 13.2 g/dL (12.2-16.2) Hematocrit 38.8 % (36.0-46.0) Mean Corpuscular Volume 89.4 fL (80.0-100.0) Mean Corpuscular Hemoglobin 30.4 pg (28.0-32.0) Mean Corpuscular Hemoglobin Concent 34.0 g/dL (32.0-36.0) Red Cell Distribution Width 13.8 % (11.8-14.3) Platelet Count 418 10^3/uL (140-450) Mean Platelet Volume 8.3 fL (6.9-10.8) Neutrophils (%) (Auto) 79.4 % (37.0-80.0) Lymphocytes (%) (Auto) 11.5 % (10.0-50.0) Monocytes (%) (Auto) 8.8 % (0.0-12.0) Eosinophils (%) (Auto) 0.0 % (0.0-7.0) Basophils (%) (Auto) 0.3 % (0.0-2.0) Neutrophils # (Auto) 7.5 10 ^3/uL (1.6-8.6) Lymphocytes # (Auto) 1.1 10 ^3/uL (0.4-5.4) Monocytes # (Auto) 0.8 10 ^3/uL (0-1.3) Eosinophils # (Auto) 0 10 ^3/uL (0-0.8) Basophils # (Auto) 0 10 ^3/uL (0-0.2) Nucleated Red Blood Cells 0.1 % Sodium Level 135 mmol/L (136-145) Potassium Level 3.6 mmol/L (3.5-5.1) Chloride Level 100 mmol/L (98-107) Carbon Dioxide Level 26 mmol/L (20-31) Anion Gap 9 (5-15) Blood Urea Nitrogen 12 mg/dL (9-23) Creatinine 0.50 mg/dL (0.550-1.02) Glomerular Filtration Rate Calc 111 mL/min (>90) BUN/Creatinine Ratio 24.0 (10.0-20.0) Serum Glucose 90 mg/dL (74-106) Calcium Level 9.6 mg/dL (8.7-10.4) Magnesium Level 1.7 mg/dL (1.6-2.6) Total Bilirubin 0.5 mg/dL (0.2-1.0) Aspartate Amino Transferase (AST) 20 U/L (13-40) Alanine Aminotransferase (ALT) 39 U/L (7-40) Alkaline Phosphatase 129 U/L (46-116) Total Protein 6.5 g/dL (5.7-8.2) Albumin 4.2 g/dL (3.2-4.8) Hemoglobin A1c 5.6 % A1C (<5.7) Lactic Acid Level 1.0 mmol/L (0.4-2.0) Free Thyroxine (T4) Calculated 2.52 ng/dL (0.89-1.76) Free Triiodothyronine (T3) pg/mL 5.28 pg/mL (2.3-4.2) Plasma/Serum Blood Alcohol < 3.0 mg/dL (<10) Atypical p-ANCA <1:20 titer (Neg:<1:20) Saccharomyces cerevisiae IgG Ab <20.0 Units (0.0-24.9) Saccharomyces cerevisiae IgA Ab <20.0 Units (0.0-24.9) Urine Color Light-yellow (Yellow) Urine Clarity Clear (Clear) Urine pH 6.5 (5.0-9.0) Urine Specific [place] 1.019 (1.001-1.035) Urine Protein Trace (Negative) Urine Ketones 2+ (Negative) Urine Blood Negative /uL (Negative) Urine Nitrite Negative (Negative) Urine Bilirubin Negative (Negative) Urine Urobilinogen Normal mg/dL (Negative) Urine Leukocyte Esterase Negative /uL (Negative) Urine RBC <1 /hpf (0 - 4) Urine WBC 1 /hpf (0 - 5) Urine Squamous Epithelial Cells Few /hpf (<5) Urine Bacteria None seen /hpf (None Seen) Urine Mucus Few (None Seen) Urine Glucose Normal mg/dL (Normal) Urine Opiates Screen Pos (NEGATIVE) Urine Fentanyl Screen Neg (NEGATIVE) Urine Barbiturates Screen Neg (NEGATIVE) Urine Phencyclidine Screen Neg (NEGATIVE) Urine Amphetamines Screen Neg (NEGATIVE) Urine Benzodiazepines Screen Neg (NEGATIVE) Urine Cocaine Screen Neg (NEGATIVE) Urine Cannabinoids Screen Pos (NEGATIVE) Test 02/12/24 23:30 02/12/24 22:56 Influenza Type A Antigen Negative (Negative) Influenza Type B Antigen Negative (Negative) SARS-CoV-2 Antigen (Rapid) Negative (NEGATIVE) Lipase 32 U/L (12-53) Thyroid Stimulating Hormone (TSH) < 0.01 uIU/mL (0.55-4.78) Other Laboratory Tests 02/15/24 05:50 Brief Hx & Hospital Course: Patient is 53 years old female with a past medical history of Graves disease(previously on methimazole and propranolol but stopped her medication as per her shopper's aide recommendation) came with a complaint of intractable nausea and vomiting. As per patient she has been having cyclic nausea and vomiting for last 2-3 months which usually last for 2-3 weeks then it gets better and comes back. For latest episode she has been having nausea and vomiting below for last 2-3 weeks, yesterday she threw up to 20 times, mostly watery but she had some blood with the with vomiting of last two episode yesterday . Patient also complained of right upper abdominal pain that radiates to her back, severity 7/10, sharp in nature. Patient also endorsed 3 episodes of diarrhea, watery stool yesterday. On further discussion patient also reported that she lost almost 18 lb in last 2 months., complained of night sweating as well. Initial lab workup revealed WBC 13.1, platelet 551, potassium 3.4, lipase 32, lactic acid 1.0, elevated alkaline phosphatase 138, tele TSH<.001, FT4 2.52, FT3 5.28. UDS positive for cannabinoids and opiates. Patient was tested negative for COVID-19 and influenza type A and B and urinalysis was negative for UTI. CT abdomen and pelvis revealed- Fatty infiltration involving portions of the colonic wall which can be seen with inflammatory bowel disease or prior episodes of infectious/inflammatory colitis. CXR revealed-The heart appears normal in size. The lungs appear clear without focal airspace opacity, effusion, or pneumothorax. On 02/14/2024- Endoscopic revealed-1. 2 cm sliding-type hiatal hernia with severe grade C linear erosive esophagitis with esophageal ulcers and inflammatory changes extending into the distal 10 cm of the esophagus 2. Mild antral gastritis with pre-pyloric antral gastric erosions otherwise normal examination up to the 2nd and 3rd part of the duodenum.. During hospitalization patient was treated conservatively. Patient had endoscopy of the upper GI . Inflammatory bowel disease was ruled out. Patient's symptom improved clinically. Patient was able to tolerate diet. Patient was adamant about going home today. Patient was counseled about her current medical condition. Patient was discharged with methimazole 5 mg p.o. daily, propranolol 10 mg t.i.d., pantoprazole 40 mg b.i.d., Carafate 1 g q.6h. Patient was advised to follow up with the primary care physician in 1 week and also to follow up with her shopper's aide in 2-4 weeks. Patient was also advised to follow up with the security software engineer in 2-4 weeks. Patient's meds were sent to the pharmacy electronically General examination-tired looking, awake, alert HEENT- PEERLA, no acute nasal discharge Cardiovascular- S1-S2 audible, rate and rhythm regular, no murmur Respiratory- CTAB, no wheeze or rhonchi Gastrointestinal-n right upper abdominal tenderness+, bowel sound+. Nondistended Musculoskeletal-no acute joint swelling or tenderness or redness# Lower extremity- no leg edema Neurological- cranial nerves intact, no acute dysarthria or dysphagia Psychiatry- denies depression or SI or HI Skin- no acute rash or purpura Operations or Procedures DIAGNOSTIC IMAGING Diagnostic Imaging Report : [id number] Signed PATIENT: APOLONIA ABRAHAM ACCT: [id number] UNIT: [id number] : 1970 LOC: TELE-E-ADS ROOM / BED: [address] [place] [address] AGE / SEX: 53 / F ADM STATUS: ADM IN SERVICE 0348 ORDERING PHYSICIAN: EMILE HODGE RESIDENT PROCEDURE(s): CXR1 - CHEST XRAY 1 VIEW REASON: r/o pneumonia ORDER NUMBER(s): [id number], ACCESSION NUMBER(s): [id number] CHEST RADIOGRAPH Indication: r/o pneumonia Technique: Single frontal view of the chest was obtained Comparison: None IMPRESSION: The heart appears normal in size. The lungs appear clear without focal airspace opacity, effusion, or pneumothorax. ATED BY: ZEFERINO BRYANT MD DICTATED DATE/TIME: 02/13/24645 SIGNED BY: ZEFERINO BRYANT MD SIGNED DATE/TIME: 02/13/24645 CC: DIAGNOSTIC IMAGING Diagnostic Imaging Report : [id number] Signed PATIENT: APOLONIA ABRAHAM ACCT: [id number] UNIT: [id number] : 1970 LOC: ER ROOM / BED: / AGE / SEX: 53 / F ADM STATUS: REG ER SERVICE 04 ORDERING PHYSICIAN: BOBBY MILIAN MD PROCEDURE(s): ABPL - CT AB PEL WO CON-NO ORAL OR IV REASON: colitis ORDER NUMBER(s): [id number], ACCESSION NUMBER(s): [id number] Exam: CT CT AB PEL WO CON-NO ORAL OR IV History: colitis Comparison Study: None available at time of dictation. Technique: Multidetector spiral CT of the abdomen was performed from lung bases to pubic symphysis. Imaging was performed without IV contrast. Axial, coronal and sagittal multiplanar reformats were obtained from the axial data set by the technologist. Radiation Dose : 1. Abdomen/Pelvis: CTDIvol 5 mGy, DLP 226 mGy*cm. Findings: Evaluation of solid organs is limited due to lack of intravenous contrast use. Lung Bases: No acute or significant lung base finding. Normal heart size. No pleural or pericardial effusion. Liver: The liver is normal in size. No focal lesions. Gallbladder and Biliary Tree: Gallbladder is surgically absent. Spleen: Unremarkable Pancreas: The pancreas is grossly normal in appearance. Adrenal Glands: Unremarkable Kidneys: Kidneys are grossly normal without calculi or hydronephrosis. Bladder: Grossly unremarkable for degree of distention. Bowel: The stomach is grossly normal in appearance. Small bowel and colon are normal in caliber and distribution. The appendix is not visualized; however, no secondary findings of acute appendicitis identified. Ascites: Absent Lymphadenopathy: No mesenteric, retroperitoneal or periportal lymphadenopathy. Abdominal Wall and Mesentery: Unremarkable. Vasculature: The visualized abdominal aorta is normal in size and caliber. Evaluation of abdominal and pelvic vessels is limited due to lack of intravenous contrast. Pelvic Organs: The uterus is surgically absent. Musculoskeletal: No aggressive focal bony lesions, acute fractures or dislocation. IMPRESSION: No acute abdominal or pelvic findings on this noncontrast evaluation. No evidence to suggest acute colitis. Fatty infiltration involving portions of the colonic wall which can be seen with inflammatory bowel disease or prior episodes of infectious/inflammatory colitis. Ancillary findings as described above. Status post cholecystectomy with expected dilation of the common bile duct. END IMPRESSION: ATED BY: BRADY PHILLIPS DO DICTATED DATE/TIME: 02/12/241839 SIGNED BY: BRADY PHILLIPS DO SIGNED DATE/TIME: 02/12/241839 CC: Patient: APOLONIA ABRAHAM Acct: [id number] : 1970 Loc: [facility] Age/Sex: 53/F Room: [address] [place] [address] / Bed: 5 Attending Phy: EMILE HODGE RESIDENT Operative Report DATE OF OPERATION: 02/14/24 PROCEDURE: Upper Endoscopy with biopsy. PREOPERATIVE INDICATION: The patient is a 53 -year-old female undergoing endoscopy for nausea vomiting POSTOPERATIVE DIAGNOSES: 1. 2 cm sliding-type hiatal hernia with severe grade C linear erosive esophagitis with esophageal ulcers and inflammatory changes extending into the distal 10 cm of the esophagus 2. Mild antral gastritis with pre-pyloric antral gastric erosions otherwise normal examination up to the 2nd and 3rd part of the duodenum PROCEDURE PERFORMED BY: Shakira Varela GI NURSE: Ariana SCOPE: Olympus videoendoscope. ASA CLASS: 2. PREOPERATIVE MEDICATIONS: Versed 5 mg, Fentanyl 150 mcg, Benadryl 50 mg I administered moderate sedation throughout this _10_ minutes procedure. An independent trained observer pushed medications at my direction, and monitored the patient's level of consciousness and physiological status throughout. PROCEDURE IN DETAIL: After obtaining an informed consent, the patient was placed on left lateral decubitus position. The patient was then sedated with the above medications. A bite block was placed between her teeth. The endoscope was then passed through the oropharynx, into the esophagus, and through the stomach and pylorus up to the second and third part of the duodenum. The endoscope was then withdrawn. The 2nd and 3rd part of the duodenal and the duodenal bulb were normal. Duodenal biopsies were obtained. The pre-pyloric area and antrum showed mild gastritis with some superficial pre- pyloric antral gastric erosions and tiny ulcers. On retroflexion the fundus cardia and angularis were normal. There was no fresh or old blood in the stomach. Gastric biopsies were obtained. The endoscope was then withdrawn into the distal esophagus. Patient had a 2 cm sliding-type hiatal hernia with [id number] grade B to C linear erosive esophagitis with esophageal ulcers extending into the distal 10 cm of the esophagus Esophageal biopsies were obtained. The mid to proximal esophagus and oropharynx were otherwise unremarkable. The patient tolerated the procedure well without difficulty. COMPLICATIONS : None SPECIMENS: Duodenal biopsies Gastric biopsies Esophageal biopsies DISPOSITION: Transfer back to the floor Stable PLAN: 1. Await for biopsy result 2. Will place pt on Protonix 40 mg bid 3. Carafate 1 g p.o. 4 times a day 4. DC aspirin NSAIDs smoking alcohol 5. Resume full liquid diet advance to soft mechanical as tolerated SHAKIRA VARELA MD Feb 14, 2024 11:39 DICTATED BY:SHAKIRA VARELA MD DICTATED DATE/TIME:02/14/24 1139 ELECTRONICALLY SIGNED BY:SHAKIRA VARELA MD 02/14/24 1140 ELECTRONICALLY CO-SIGNED BY: Condition at Discharge: Stable Final Diagnosis/Problems List Acute gastroenteritis ruled out IBD, status post EGD # erosive gastritis with a superficial ulcer and 7 for changes # mild antral gastritis and pre-pyloric antral gastric erosions # intractable nausea and vomiting likely due to gastroenteritis #SIRS, Suspected Sepsis #Cyclical vomiting syndrome #Severe Malnutrition: BMI 15.9 or inflammatory colitis # suspected acute exacerbation of of Graves disease # hypokalemia replenished # leukocytosis likely due to inflammatory bowel disease/reactive leukocytosis # thrombocytosis maybe likely due to dehydration/ reactive # poly substance abuse-UDS positive for cannabinoids # weight loss might be related to hyperthyroidism or Graves disease Discharge Disposition: Home Discharge Instruct/Medications Diet: Regular Activity: No Restrictions, As Tolerated Follow Up/Referral: Please follow up with the primary care physician in 1 week and also follow up with the shopper's aide in 2-4 weeks Patient was advised to follow up with the security software engineer in 2-4 weeks Medications: Methimazole 5 mg p.o. daily Propranolol 10 mg p.o. Q 8 H Zofran 4 mg q.6h p.r.n. for 5 days Discharge Statement: "Patient was advised to return to the ER or call 911 if any headaches, dizziness, shortness of breath, chest pain, abdominal pain, bleeding, fevers, or worsening of medical condition. Patient was counseled about treatment plan, medications, possible side effects, patientverbalized understanding. All questions were answered to the best of my ability. This discharge took greater then 30 minutes in planning, reviewing documentation, counseling the patient, and discussing with other team members." ASSESSMENT ASSESSMENT Assessment # suspected inflammatory bowel disease # erosive gastritis with a superficial ulcer and 7 for changes # mild antral gastritis and pre-pyloric antral gastric erosions # intractable nausea and vomiting likely due to inflammatory bowel disease or inflammatory colitis # recurrence of Graves disease # hypokalemia replenished # leukocytosis likely due to inflammatory bowel disease/reactive leukocytosis # thrombocytosis maybe likely due to dehydration/ reactive # substance abuse-UDS positive for cannabinoids # weight loss might be related to hyperthyroidism or Graves disease Date of Service: Feb 15, 2024 Billing Provider: ELDON SANTILLAN MD Common Visit Codes: 87146-SMU/OBS DISCH DAY >30min LINDA KIMBLE Feb 15, 2024 17:33 ELDON SANTILLAN MD Feb 19, 2024 20:56
== END 2024-02-15 16:27 | disposition home or self-care (01) | DRG 720 ==
LOC: EDBD 16:00 → ER 16:00 → TELE 22:23 → TELE-E-ADS 23:31
PROVIDERS: ADMIT Student in an Organized Health Care Education/Training Program; ATTEND Student in an Organized Health Care Education/Training Program
PROC: 0DB68ZX Excision of Stomach, Via Natural or Artificial Opening Endoscopic, Diagnostic (ICD-10-PCS; 2024-02-14)
PROC: 0DB58ZX Excision of Esophagus, Via Natural or Artificial Opening Endoscopic, Diagnostic (ICD-10-PCS; 2024-02-14)
PROC: 0DB98ZX Excision of Duodenum, Via Natural or Artificial Opening Endoscopic, Diagnostic (ICD-10-PCS; principal; 2024-02-14 11:15)
DX: A41.9 Sepsis, unspecified organism (principal); E43 Unspecified severe protein-calorie malnutrition; K22.10 Ulcer of esophagus without bleeding; K29.60 Other gastritis without bleeding; Z20.822 Contact with and (suspected) exposure to COVID-19; K25.9 Gastric ulcer, unspecified as acute or chronic, without hemorrhage or perforation; A09 Infectious gastroenteritis and colitis, unspecified; E87.6 Hypokalemia; E86.0 Dehydration; E05.00 Thyrotoxicosis with diffuse goiter without thyrotoxic crisis or storm; K59.00 Constipation, unspecified; K44.9 Diaphragmatic hernia without obstruction or gangrene; M81.0 Age-related osteoporosis without current pathological fracture; E05.90 Thyrotoxicosis, unspecified without thyrotoxic crisis or storm; G89.29 Other chronic pain; F12.10 Cannabis abuse, uncomplicated; D75.839 Thrombocytosis, unspecified; Z90.49 Acquired absence of other specified parts of digestive tract; Z68.1 Body mass index [BMI] 19.9 or less, adult; Z82.49 Family history of ischemic heart disease and other diseases of the circulatory system; Z90.710 Acquired absence of both cervix and uterus; Z80.8 Family history of malignant neoplasm of other organs or systems
CPT/HCPCS: 36415; 43239; 71045; 74176; 80048; 80053; 80307; 80320; 81001; 83036; 83605; 83690; 83735; 84439; 84443; 84481; 85025; 86256; 86671; 87426; 87804; 96365; 96367; 96375; 96376; G0378; J2003; J2250; J2405; J2470; J3490